=== PATIENT | female | born 1950 | race Caucasian/White ===

== ENCOUNTER → 2017-08-01 | Outpatient (CLI) | payer OTHER ==
[~2017-08-01] VITALS: Ht 162.6 cm; Wt 85.7 kg
[~2017-08-01] MED LIST: ADVAIR HFA 230M12 GM INH; CARVEDILOL3.125 MG PO; COLACE100 MG PO; IMDUR 30 MG TAB30 M1 PO; LISINOPRIL10 MG PO; LOW DOSE ASPIRI81 M1 PO; PLAVIX 75 MG TA75 M1 PO; ROXICODONE5 M2 PO; SYMBICORT160 MCG/4. INH; TYLENOL EXTRA500 MG PO; ZOCOR40 MG PO
[2017-08-01 10:03] VITALS: BP 112/59
[2017-08-01 11:19] LABS: CREATININE 0.8 mg/dL (0.6-1.3)
== END | disposition home or self-care (01) ==
LOC: M.INT 09:29
PROVIDERS: Radiology Diagnostic Radiology
DX: I73.9 Peripheral vascular disease, unspecified (principal); I25.10 Atherosclerotic heart disease of native coronary artery without angina pectoris; Z95.5 Presence of coronary angioplasty implant and graft; J44.9 Chronic obstructive pulmonary disease, unspecified; F17.200 Nicotine dependence, unspecified, uncomplicated

== ENCOUNTER → 2017-08-08 | Outpatient (CLI) | payer OTHER | LOC: M.CT 08:31 | DX: I70.1 Atherosclerosis of renal artery (principal); K55.1 Chronic vascular disorders of intestine; I77.811 Abdominal aortic ectasia; I73.9 Peripheral vascular disease, unspecified; M48.061 Spinal stenosis, lumbar region without neurogenic claudication; N20.0 Calculus of kidney; N30.20 Other chronic cystitis without hematuria; M47.896 Other spondylosis, lumbar region; I77.1 Stricture of artery ==

== ENCOUNTER 2017-10-06 08:57 | Observation (INO) | payer OTHER ==
[2017-10-06] VITALS (9 sets, daily range): BP systolic 103–126; BP diastolic 42–58
[~2017-10-06] VITALS: Ht 162.6 cm; Wt 82.6 kg
[~2017-10-06 08:57] MED LIST changes: -ADVAIR HFA 230M12 GM INH; -COLACE100 MG PO; -ROXICODONE5 M2 PO; -TYLENOL EXTRA500 MG PO
[2017-10-06 10:39] LABS: HEMATOCRIT 41.8 % (37.0-47.0); HEMOGLOBIN 13.8 gm/dL (12.0-15.0); MCH 32.3 pg (26.0-34.0); MCHC 33.1 g/dL (28.0-37.0); MCV 97.7 fL (80.0-100.0); MPV 9.8 fl. (7.2-11.1); RBC 4.28 mil/uL (4.20-5.00); RDW-CV 13.1 % (10.5-14.5); WBC 7.7 thou/uL (4.0-11.0)
[2017-10-06 10:47] LABS: CALCIUM 9.1 mg/dL (8.5-10.1); CREATININE 0.6 mg/dL (0.6-1.3); POTASSIUM 4.7 mmol/L (3.5-5.1)
[2017-10-06 10:48] LABS: APTT 26.3 Seconds (25.0-31.3)
[2017-10-06 10:52] LABS: ALBUMIN 3.5 g/dL (3.4-5.0); TOTAL BILIRUBIN 0.4 mg/dL (<0.1-1.0)
--- NOTE | 2017-10-06 18:44 | NUR ---
PT ADMITTED TO FLOOR AT 1650 SITES ARE THROUGH LEFT GROIN AND RIGHT ANKLE MODERATE AMOUNT OF BLOOD NOTED BUT STOPPED WITH PRESSURE FC 16FR APPLIED TO PT D/T BLADDER SCAN AT 591 AND PT NOT ABLE TO VOID IV TO LAC AND LEFT WRIST 1/2 NS AT 75/H NO FLUIDS ORDERED AFTER TRIED TO GET ADMIT WELL THIS NURSE COULD PT IS VERY DROWSY PT IS A CURRENT EVERYDAY SMOKER PT SHOULD BE ABLE TO GET OUT OF BED AROUND [id number] CALL LIGHT IN REACH
[2017-10-07 00:20] VITALS: BP 134/47
[2017-10-07 03:52] VITALS: BP 121/43
--- NOTE | 2017-10-07 06:31 | NUR ---
PT IS ABLE TO COMMUNICATE HER NEEDS TO STAFF EFFECTIVELY, FOR THE MOST PART; SHE IS STILL A LITTLE DROWSEY AT TIMES FROM MEDS SHE RECEIVED DURING HER PROCEDURE YESTERDAY EVENING, BUT SHE HAS BECOME PROGRESSIVELY MORE ALERT THROUGHOUT THIS SHIFT. PT RAN A LOW-GRADE FEVER DURING PART OF THIS SHIFT; TYLENOL WAS EFFECTIVE AT REDUCING HER FEVER. SHE HAS DENIED THE NEED FOR PAIN MEDICATION UP TO THIS TIME. LEFT GROIN CATH SITE DRESSING IS INTACT. CHUNG IS PATENT.
[2017-10-07 08:35] VITALS: BP 137/41
--- NOTE | 2017-10-07 08:35 | NUR ---
ASSUMED PT. CARE AND RECEIVED REPORT AT 0730. PT A/OX4, VSS, MONITOR ON TRACING SR. PT. DENIES CURRENT PAIN/SOB. ON 3L NC @ 96%. FULL ASSESSMENT COMPLETED, REFER TO CHARTING. LEFT GROIN DRESSING INTACT, SOFT, WITH NO HEMATOMA NOTED, RIGHT ANKLE DRESSING INTACT. BILATERAL LE PULSES WNL. CALL LIGHT IN REACH, WILL CONTINUE WITH PLAN OF CARE.
[2017-10-07] MEDS ORDERED: ROXICODONE5 M2 PO (09:43)
[2017-10-07] MEDS ORDERED: COLACE100 MG PO (11:18)
[2017-10-07 11:20] VITALS: BP 137/41
[2017-10-07] MEDS ORDERED: TYLENOL EXTRA500 MG PO (11:20)
--- NOTE | 2017-10-07 12:37 | NUR ---
DC ORDERS RECEIVED. DRESSING CHANGED TO LEFT GROIN/RIGHT ANKLE, BOTH AREAS WNL, WITH NO NOTED BLEEDING OR HEMATOMA PRESENT. PT. GIVEN DC INSTRUCTIONS TO INCLUDE NOT TO LIFT >10LBS FOR 5 DAYS AND TO KEEP ARE CLEAN/DRY; FOLLOW UP WITH DR. JACOBS IN 4 WEEKS. PT. STATED UNDERSTANDING. IV AND MONITOR REMOVED. PT. LEFT WITH SON IN PERSONAL VEHICLE, ALL BELONGINGS ACCOUNTED FOR.
== END 2017-10-07 12:26 | disposition home or self-care (01) ==
LOC: M.INT 08:57 → M.TBA 16:27 → M.2W 16:27 → M.TBA 16:27 → M.2W 16:45
PROVIDERS: Radiology Diagnostic Radiology; ADMIT Internal Medicine
DX: I74.3 Embolism and thrombosis of arteries of the lower extremities (principal); I73.9 Peripheral vascular disease, unspecified; J44.9 Chronic obstructive pulmonary disease, unspecified; F17.200 Nicotine dependence, unspecified, uncomplicated; Z95.5 Presence of coronary angioplasty implant and graft

== ENCOUNTER → 2017-11-10 | Outpatient (CLI) | payer OTHER ==
[~2017-11-10] VITALS: Ht 162.6 cm; Wt 80.7 kg
[~2017-11-10] MED LIST changes: +ADVAIR HFA 230M12 GM INH; +COLACE100 MG PO; +ROXICODONE5 M2 PO; +TYLENOL EXTRA500 MG PO
[2017-11-10 09:40] VITALS: BP 112/57
[2017-11-10 09:43] VITALS: BP 112/57
== END ==
LOC: M.ULTRA 10-06 16:36
DX: I77.89 Other specified disorders of arteries and arterioles (principal); I25.10 Atherosclerotic heart disease of native coronary artery without angina pectoris; J44.9 Chronic obstructive pulmonary disease, unspecified; Z95.5 Presence of coronary angioplasty implant and graft

== ENCOUNTER 2017-11-17 08:50 | Observation (INO) | payer OTHER ==
[2017-11-17] VITALS (11 sets, daily range): BP systolic 127–160; BP diastolic 59–92
[~2017-11-17] VITALS: Ht 162.6 cm; Wt 86.2 kg
[~2017-11-17 08:50] MED LIST changes: -ADVAIR HFA 230M12 GM INH
[2017-11-17 09:50] LABS: HEMATOCRIT 41.7 % (37.0-47.0); HEMOGLOBIN 13.9 gm/dL (12.0-15.0); MCH 32.8 pg (26.0-34.0); MCHC 33.4 g/dL (28.0-37.0); MCV 98.1 fL (80.0-100.0); MPV 9.4 fl. (7.2-11.1); RBC 4.25 mil/uL (4.20-5.00); RDW-CV 13.4 % (10.5-14.5); WBC 8.5 thou/uL (4.0-11.0)
[2017-11-17 10:01] LABS: CALCIUM 9.2 mg/dL (8.5-10.1); CREATININE 0.7 mg/dL (0.6-1.3); POTASSIUM 4.3 mmol/L (3.5-5.1)
[2017-11-17 10:03] LABS: APTT 26.7 Seconds (25.0-31.3)
[2017-11-17 10:05] LABS: ALBUMIN 3.8 g/dL (3.4-5.0); TOTAL BILIRUBIN 0.3 mg/dL (<0.1-1.0); TOTAL PROTEIN 7.3 g/dL (6.4-8.2)
[2017-11-18 00:21] VITALS: BP 98/39
[2017-11-18 04:40] LABS: HEMATOCRIT 34.1 % (37.0-47.0); MCH 32.9 pg (26.0-34.0); MCHC 33.2 g/dL (28.0-37.0); MCV 99.2 fL (80.0-100.0); MPV 9.3 fl. (7.2-11.1); RBC 3.44 mil/uL (4.20-5.00); RDW-CV 13.2 % (10.5-14.5); WBC 7.7 thou/uL (4.0-11.0)
[2017-11-18 04:42] VITALS: BP 120/49
[2017-11-18 05:02] LABS: HEMOGLOBIN 11.3 gm/dL (12.0-15.0)
[2017-11-18 05:38] LABS: CALCIUM 8.2 mg/dL (8.5-10.1); CREATININE 0.6 mg/dL (0.6-1.3); POTASSIUM 4.8 mmol/L (3.5-5.1)
--- NOTE | 2017-11-18 06:44 | NUR ---
ASSUMED PATIENT CARE AT 1910. PATIENT ALERT AND ORIENTED TIMES FOUR, UP IN BED EATING A BOX LUNCH, NO COMPLAINTS OF NAUSEA OR DISCOMFORT. MINOR COMPLAINT OF PAIN. CONTROLLED WITH ORAL PAIN MEDICATION. IV PATENT TO FLUIDS AND FLUSHES. CHUNG CATH REMOVED AT 0600. PATIENT ABLE TO AMBULATE INDEPENDENTLY TO THE RESTROOM. MAINTAINED O2 STATUS OVERNIGHT. CAREER SERVICES COORDINATOR COMPLETED DOCUMENTED. HOURLY ROUNDING COMPLETED CHARTED
[2017-11-18 08:15] VITALS: BP 134/64
[2017-11-18] MEDS ORDERED: ROXICODONE5 M2 PO (09:25)
[2017-11-18 10:58] VITALS: BP 134/64
--- NOTE | 2017-11-18 11:03 | NUR ---
SW met with pt to complete initial assessment, introduce self, and SW role. Pt alert and oriented. Pt son bedside. Pt lives at home independently and did not express any dc needs at this time. SW to continue to follow to assist with safe dc planning.
[2017-11-18] MEDS ORDERED: ADVAIR HFA 230M12 GM INH (16:07)
--- NOTE | 2017-11-18 19:00 | NUR ---
PATIENT LEFT UNIT AT 1230. ALERT AND ORIENTED X4. UP AD KEEGAN IN ROOM. IV DC'D. DENIES NEED FOR PAIN MEDICATION. DENIES NAUSEA. DRESSING ON RIGHT GROIN C/D/I. DRESSING ON LEFT FOOD C/D/I. ALL PERSONAL ITEMS LEFT WITH PATIENT. DISCHARGE INSTRUCTIONS, PRESCRIPTIONS, AND NEW MEDICATION INFORMATION SENT WITH PATIENT. VSS ON ROOM AIR. HOURLY ROUNDS HAVE BEEN MAINTAINED THROUGHOUT SHIFT. LEFT WITH FAMILY MEMBER VIA CAR.
[2017-11-18 19:03] VITALS: BP 134/64
== END 2017-11-18 12:30 | disposition home or self-care (01) ==
LOC: M.INT 08:50 → M.TBA 16:40 → M.ORTHSURG 18:46
PROVIDERS: Radiology Diagnostic Radiology; ADMIT Internal Medicine
DX: I70.212 Atherosclerosis of native arteries of extremities with intermittent claudication, left leg (principal); I25.10 Atherosclerotic heart disease of native coronary artery without angina pectoris; J44.9 Chronic obstructive pulmonary disease, unspecified; I73.9 Peripheral vascular disease, unspecified; R40.0 Somnolence; I74.3 Embolism and thrombosis of arteries of the lower extremities; F17.210 Nicotine dependence, cigarettes, uncomplicated; Z79.82 Long term (current) use of aspirin; Z95.5 Presence of coronary angioplasty implant and graft; Z95.820 Peripheral vascular angioplasty status with implants and grafts

== ENCOUNTER → 2018-01-11 | Outpatient (CLI) | payer OTHER ==
[~2018-01-11] VITALS: Ht 162.6 cm; Wt 84.8 kg
[~2018-01-11] MED LIST changes: +ADVAIR HFA 230M12 GM INH
== END ==
LOC: M.ULTRA 12:47
DX: I73.9 Peripheral vascular disease, unspecified (principal); M79.605 Pain in left leg